=== PATIENT | male | born 1950 | race Caucasian/White ===

== ENCOUNTER 2021-05-13 13:42 | Emergency (ER) | payer OTHER ==
[2021-05-13] MEDS ORDERED: BUPIVACAINE 0.5% PF 10 ML VIAL ONE (15:27)
--- NOTE | 2021-05-13 15:50 | RAD REPORT ---
EXAM DESCRIPTION: RAD - Hand Left 3 View - 05/13/2021 3:27 pm CLINICAL HISTORY: hand pain Trauma, pain COMPARISON: No comparisons FINDINGS: Tuft fracture involves the fifth finger. There is also fracture suspected along the base o f the distal phalanx of the fifth finger. Moderate soft tissue swelling.
--- NOTE | 2021-05-13 17:12 | ER ---
Nurse's Notes [facility] Name: Manan Wilhelm Age: 70 yrs Sex: Male : 1950 Arrival Date: 05/13/2021 Time: 13:45 Bed DX3 Private MD: Amanda Kurtz H Diagnosis: 5th Finger Laceration with Partial Amputation;5th Phalanx Fracture Presentation: 05/13 14:49 Chief complaint: Patient states: Left little finger smashed in a log splitter at 1200. jl7 Coronavirus screen: At this time, the client does not indicate any symptoms associated with coronavirus-19. Ebola Screen: No symptoms or risks identified at this time. Initial Sepsis Screen: Does the patient meet any 2 criteria? No. Patient's initial sepsis screen is negative. Does the patient have a suspected source of infection? No. Patient's initial sepsis screen is negative. Risk Assessment: Do you want to hurt yourself or someone else? Patient reports no desire to harm self or others. Onset of symptoms was May 13, 2021 at 12:00. 14:49 Method Of Arrival: Ambulatory [facility] 14:49 Acuity: SERVANDO 3 jl7 Triage Assessment: 14:51 General: Appears in no apparent distress. uncomfortable, Behavior is calm, cooperative, jl7 appropriate for age. Pain: Complains of pain in left little finger Pain currently is 9 out of 10 on a pain scale. Musculoskeletal: Injury Description: Avulsion sustained to palmar aspect of distal phalanx of left little finger. Historical: - Allergies: 14:51 No Known Allergies; jl7 - Home Meds: 14:51 Lisinopril Oral [Active]; atorvastatin oral [Active]; ticagrelor oral [Active]; jl7 - PMHx: 14:51 Myocardial infarction; jl7 - Immunization history:: Client reports receiving the 2nd dose of the Covid vaccine, Moderna. - Social history:: Smoking status: Patient reports the use of cigarette tobacco products, smokes one pack cigarettes per day. Screenin:15 Abuse screen: Denies threats or abuse. Denies injuries from another. Nutritional ld1 screening: No deficits noted. Tuberculosis screening: No symptoms or risk factors identified. Fall Risk None identified. Assessment: 15:15 General: Appears in no apparent distress. comfortable, Behavior is calm, cooperative, ld1 appropriate for age. Pain: Complains of pain in dorsal aspect of distal phalanx of left little finger, dorsal aspect of middle phalanx of left little finger and left little fingernail Pain does not radiate. Pain currently is 7 out of 10 on a pain scale. Quality of pain is described as throbbing, Pain began 2 hours ago. Is continuous. Neuro: Level of Consciousness is awake, alert, obeys commands, Oriented to person, place, time, situation. Cardiovascular: Capillary refill < 3 seconds Patient's skin is warm and dry. Respiratory: Airway is patent Respiratory effort is even, unlabored, Respiratory pattern is regular, symmetrical. GI: Abdomen is flat, non-distended. : No signs and/or symptoms were reported regarding the genitourinary system. EENT: No signs and/or symptoms were reported regarding the EENT system. Derm: Skin has skin tears on Left pinky was caught in wood splitter. Musculoskeletal: No signs and/or symptoms reported regarding the musculoskeletal system. 16:42 Reassessment: POLE FRAMER MACHINE at bedside providing care. RR 18. Denies pain at this time. ld1 Vital Signs: 14:49 BP 139 / 72; Pulse 74; Resp 17; Temp 98.2; Pulse Ox 100% ; Weight 89.36 kg; Height 6 jl7 ft. 0 in. (182.88 cm); Pain 9/10; 15:15 BP 133 / 70; Pulse 70; Resp 18; Pulse Ox 100% ; Pain 8/10; ld1 16:42 BP 129 / 77; Pulse 76; Resp 19; Pulse Ox 99% on R/A; Pain 0/10; ld1 14:49 Body Mass Index 26.72 (89.36 kg, 182.88 cm) jl7 ED Course: 13:45 Patient arrived in ED. am2 13:45 Amanda Kurtz DO is Private Physician. am2 14:51 Triage completed. jl7 14:51 Arm band placed on right wrist. jl7 14:58 Stephen Arzola PA is PHCP. [facility] 14:58 Pablito Mathews MD is Attending Physician. jmm 15:15 Patient has correct armband on for positive identification. Call light in reach. Pulse ld1 ox on. NIBP on. Warm blanket given. 15:15 No provider procedures requiring assistance completed. ld1 15:27 Hand Left 3 View XRAY In Process Unspecified. EDMS 17:10 Robert Bridges MD is Referral Physician. jmm 17:10 Ashutosh Tucker MD is Referral Physician. jmm 17:18 Patient did not have IV access during this emergency room visit. intact, bleeding ld1 controlled, No redness/swelling at site. Administered Medications: 16:21 Drug: Marcaine (bupivacaine) (0.5 %) 1 application {Note: Administered by Laverne ld1 Corpus, POLE FRAMER MACHINE.} Volume: 10 ml; Route: Infiltration; 16:22 Follow up: Response: No adverse reaction ld1 16:54 Drug: Ancef (cefazolin) 1 grams Route: IM; Site: right deltoid; ld1 16:54 Follow up: Response: No adverse reaction ld1 17:16 Drug: Tetanus-Diphtheria Toxoid Adult 0.5 ml {Early Childhood Director: [employer]. Exp: ld1 12/19/2022. Lot #: [id number]. } Route: IM; Site: left deltoid; 17:17 Follow up: Response: No adverse reaction ld1 Outcome: 17:11 Discharge ordered by MD. jmm 17:17 Discharged to home ambulatory. ld1 17:17 Condition: stable 17:17 Discharge instructions given to patient, Instructed on discharge instructions, follow up and referral plans. Demonstrated understanding of instructions, follow-up care. 17:18 Patient left the ED. ld1 Signatures: Dispatcher [employer] EDMS Stephen Arzola PA PA jmm Leal, Jahala RN RN jl7 Conchita Cuellar Lauren, RN RN ld1
--- NOTE | 2021-05-13 17:12 | EDPHYS ---
Physician Documentation [facility] Name: Manan Wilhelm Age: 70 yrs Sex: Male : 1950 Arrival Date: 05/13/2021 Time: 13:45 Bed DX3 Private MD: Amanda Kurtz H ED Physician Pablito Mathews HPI: 05/13 15:03 This 70 yrs old Male presents to ER via Ambulatory with complaints of Finger jmm Injury. 15:03 The patient or guardian reports injury, a laceration. Onset: The symptoms/episode jmm began/occurred acutely, just prior to arrival. Modifying factors: The symptoms are alleviated by nothing, the symptoms are aggravated by nothing. Patient states his finger was crushed in a log splitter. . Historical: - Allergies: 14:51 No Known Allergies; jl7 - Home Meds: 14:51 Lisinopril Oral [Active]; atorvastatin oral [Active]; ticagrelor oral [Active]; jl7 - PMHx: 14:51 Myocardial infarction; jl7 - Immunization history:: Client reports receiving the 2nd dose of the Covid vaccine, Moderna. - Social history:: Smoking status: Patient reports the use of cigarette tobacco products, smokes one pack cigarettes per day. ROS: 15:03 Constitutional: Negative for fever, chills, and weight loss, Cardiovascular: Negative jmm for chest pain, palpitations, and edema, Respiratory: Negative for shortness of breath, cough, wheezing, and pleuritic chest pain. 15:03 Skin: Positive for laceration(s). 15:03 All other systems are negative. Exam: 15:03 Constitutional: This is a well developed, well nourished patient who is awake, alert, jmm and in no acute distress. Head/Face: atraumatic. ENT: Moist Mucus Membranes Neck: Trachea midline, Supple Chest/axilla: Normal chest wall appearance and motion. Cardiovascular: Regular rate and rhythm. No edema appreciated Respiratory: Normal respirations, no respiratory distress appreciated Abdomen/GI: Non distended, soft Back: Normal ROM 15:03 Skin: Appearance: Color: normal in color. 15:03 Neuro: Orientation: is normal, Mentation: is normal, Memory: is normal. 15:03 Psych: Behavior/mood is pleasant, cooperative. Vital Signs: 14:49 BP 139 / 72; Pulse 74; Resp 17; Temp 98.2; Pulse Ox 100% ; Weight 89.36 kg; Height 6 jl7 ft. 0 in. (182.88 cm); Pain 9/10; 15:15 BP 133 / 70; Pulse 70; Resp 18; Pulse Ox 100% ; Pain 8/10; ld1 16:42 BP 129 / 77; Pulse 76; Resp 19; Pulse Ox 99% on R/A; Pain 0/10; ld1 14:49 Body Mass Index 26.72 (89.36 kg, 182.88 cm) jl7 Laceration: 17:08 Wound Repair of 3cm ( 1.2in ) subcutaneous laceration to left little finger. Distal jmm neuro/vascular/tendon intact. Anesthesia: Local anesthetic administered with 4 mls of 0.5% marcaine. Wound prep: Simple cleansing with betadine, Extensive cleansing, Wound irrigation with saline, Copious irrigation. Skin closed with 8 4-0 Prolene using simple sutures and sterile technique. Patient tolerated well. MDM: 15:08 Patient medically screened. [facility] 17:09 Data reviewed: vital signs, nurses notes. Counseling: I had a detailed discussion with [facility] the patient and/or guardian regarding: the historical points, exam findings, and any diagnostic results supporting the discharge/admit diagnosis, radiology results, the need for outpatient follow up, to return to the emergency department if symptoms worsen or persist or if there are any questions or concerns that arise at home. ED course: Patient given wound infection return precautions. Patient understood and agrees plan of care. 05/13 15:06 Order name: Hand Left 3 View XRAY; Complete Time: 15:52 [facility] Administered Medications: 16:21 Drug: Marcaine (bupivacaine) (0.5 %) 1 application {Note: Administered by Laverne ld1 Tonny, ANIMAL PHYSIOLOGY TEACHER.} Volume: 10 ml; Route: Infiltration; 16:22 Follow up: Response: No adverse reaction ld1 16:54 Drug: Ancef (cefazolin) 1 grams Route: IM; Site: right deltoid; ld1 16:54 Follow up: Response: No adverse reaction ld1 17:16 Drug: Tetanus-Diphtheria Toxoid Adult 0.5 ml {Metal Sander: [employer]. Exp: ld1 12/19/2022. Lot #: [id number]. } Route: IM; Site: left deltoid; 17:17 Follow up: Response: No adverse reaction ld1 Disposition: 05/14 07:52 Co-signature as Attending Physician, Pablito Mathews MD I agree with the assessment and [facility] plan of care. Disposition Summary: 05/13/21 17:11 Discharge Ordered Location: Home jm Condition: Stable jmm Diagnosis - 5th Finger Laceration with Partial Amputation jmm - 5th Phalanx Fracture [facility] Followup: [facility] - With: Robert Bridges MD - When: 2 - 3 days - Reason: Recheck today's complaints, Continuance of care, Re-evaluation by your physician Followup: [facility] - With: Ashutosh Tucker MD - When: 2 - 3 days - Reason: Recheck today's complaints, Continuance of care, Re-evaluation by your physician Discharge Instructions: - Discharge Summary Sheet jmm - Finger Fracture, Adult jmm - Laceration Care, Adult [facility] Forms: - Medication Reconciliation Form [facility] - Thank You Letter [facility] - Antibiotic Education [facility] - Prescription Opioid Use [facility] Prescriptions: - Cephalexin 500 mg Oral Capsule - take 1 capsule by ORAL route every 6 hours for 10 days; 40 capsule; Refills: 0, [facility] Product Selection Permitted Signatures: Dispatcher [employer] Pablito Mueller MD MD cha Mickail, Joel, PA PA jmm Leal, Jahala, RN RN jl7 Aditi Villalba RN RN ld1
[2021-05-13] MEDS ORDERED: CEFAZOLIN SODIUM 1 GM/VIAL ONE (17:14)
[2021-05-13] MEDS ORDERED: WATER FOR INJ,STERILE 10 ML ONE (17:16)
[2021-05-13 17:27] VITALS: TEMP 98.2
[2021-05-13 17:30] VITALS: BP 129/77; O2SAT 99
[2021-05-13] MEDS ORDERED: TETANUS & DIPHTHERIA TOX,ADULT 0.5 ML VIAL ONE (17:37)
== END 2021-05-13 17:18 | disposition home or self-care (01) ==
LOC: ER 13:42
PROC: 0JQK0ZZ Repair Left Hand Subcutaneous Tissue and Fascia, Open Approach (ICD-10-PCS; principal; 2021-05-13)
DX: S68.127A Partial traumatic metacarpophalangeal amputation of left little finger, initial encounter (principal); W31.89XA Contact with other specified machinery, initial encounter; F17.210 Nicotine dependence, cigarettes, uncomplicated; Z23 Encounter for immunization
CPT/HCPCS: 73130; 90471; 90714; 96372; 99283; 12002; J0690